=== PATIENT | female | born 1960 | race Caucasian/White ===

== ENCOUNTER 2016-11-26 13:35 | Emergency (ER) | payer OTHER ==
[2016-11-26 13:53] VITALS: TEMP 98.1; O2SAT 98
--- NOTE | 2016-11-26 14:12 | EDPHY ---
H & P Stated Complaint: Neck pain, tumble fall 6ft today-No LOC Time Seen by Provider: 11/26/16 13:59 HPI/ROS: CHIEF COMPLAINT: Neck pain, right wrist pain following fall HISTORY OF PRESENT ILLNESS: The patient presents to the emergency department with complaints of left lateral neck pain and right wrist pain after a 68 foot mechanical fall down a steep embankment while hiking with her daughter. Patient reportedly did not lose consciousness. She denies acute headache. She complains of moderate pain along the left side of her neck and in her midline. She also complains of some discomfort in her right wrist which is worsened with movement. The patient denies acute numbness or weakness. The patient does not take anticoagulants or anti-platelet agents. The patient denies acute abdominal pain, back pain, vomiting or other traumatic injury. REVIEW OF SYSTEMS: A comprehensive 10 point review of systems is otherwise negative aside from elements mentioned in the history of present illness. Source: Patient Exam Limitations: No limitations - Personal History Current Tetanus/Diphtheria Vaccine: Unsure Current Tetanus Diphtheria and Acellular Pertussis (TDAP): Unsure - Medical/Surgical History Hx Asthma: No Hx Chronic Respiratory Disease: No Hx Diabetes: No Hx Cardiac Disease: No Hx Renal Disease: No Hx Cirrhosis: No Hx Alcoholism: No Hx HIV/AIDS: No Hx Splenectomy or Spleen Trauma: No Other PMH: Denies - Social History Smoking Status: Never smoked - Physical Exam Exam: General Appearance: Alert, no distress Head: Atraumatic Eyes: Pupils equal, round, reactive ENT, Mouth: No hemotympanum, no oral trauma Neck: In cervical collar, minimal posterior tenderness, no step-off Respiratory: No chest wall tender, subcutaneous air, lungs clear bilaterally Cardiovascular: Regular rate and rhythm Abdomen: Abdomen is soft and nontender, pelvis stable Skin: Multiple superficial abrasions, multiple fine cactus needles noted Back: No midline T/L/S pain Extremities: Tenderness to palpation right distal radius, no soft tissue swelling Neurological: A&Ox3, normal motor function, normal sensory exam Constitutional: Initial Vital Signs Temperature (C) 36.7 C 11/26/16 13:51 Heart Rate 71 11/26/16 13:51 Respiratory Rate 16 11/26/16 13:51 Blood Pressure 135/86 H 11/26/16 13:51 O2 Sat (%) 98 11/26/16 13:51 O2 Delivery Mode Room Air Allergies/Adverse Reactions: No Known Allergies Allergy (Verified 11/26/16 13:54) Home Medications: Medication Instructions Recorded Miscellaneous Medical Supply [NO 1 ea MISC AD 05/31/13 HOME MEDS] Medical Decision Making - Diagnostics Imaging: CT cervical spine without contrast: Images reviewed by myself, discussed with radiologist Dr. Leander Bynum, negative for acute fracture. Right wrist x-ray: Images reviewed by myself, negative for acute fracture. ED Course/Re-evaluation: The patient presents to the ED with acute neck pain following a mechanical fall. Given her midline tenderness, a CT scan of the cervical spine was ordered which fortunately demonstrates no evidence of an acute fracture. The patient did have some right wrist pain and has no evidence of an acute fracture noted on her radiographs. The patient was re-evaluated by myself at 3:00 p.m.. She continues to be neurologically intact. She has no evidence of an acute fracture or spinal cord injury. The patient will be discharged home with customary cervical strain aftercare instructions. Differential Diagnosis: Differential diagnosis considered includes cervical spine fracture, spinal cord injury, wrist fracture, myofascial strain Departure - Departure Disposition: Home, Routine, Self-Care Clinical Impression: Cervical strain, Abrasions of multiple sites, Strain of forearm, right Condition: Good Instructions: Cervical Strain (ED), Abrasion (ED) Additional Instructions: 1. Take Ibuprofen or Motrin 600 mg by mouth three times a day. 2. Please return to the emergency department for severe headache, worsening symptoms or other concerns. 3. Please follow up with your primary care provider as needed. 4. Your CT scan and x-ray demonstrate no evidence of an acute fracture. Referrals: Aiyana Rodríguez MD [Primary Care Provider] - As per Instructions
[2016-11-26 15:23] VITALS: BP 123/80; PULSE 78; RESP 15
== END 2016-11-26 15:21 | disposition home or self-care (01) ==
DX: S16.1XXA Strain of muscle, fascia and tendon at neck level, initial encounter (principal); S56.911A Strain of unspecified muscles, fascia and tendons at forearm level, right arm, initial encounter; T14.8 Other injury of unspecified body region; W17.81XA Fall down embankment (hill), initial encounter; Y99.8 Other external cause status; Y93.01 Activity, walking, marching and hiking